=== PATIENT | female | born 1950 | race Caucasian/White ===

== ENCOUNTER 2017-01-21 08:30 | Inpatient (IN) | payer MEDICARE, OTHER ==
[~2017-01-21] VITALS: Ht 163.8 cm; Wt 88.1 kg
[2017-02-14] MEDS ORDERED: PLAV75TA29 PO (09:40)
[2017-02-14] MEDS ORDERED: ASPI325T PO (09:40)
[2017-02-14] MEDS ORDERED: AMLO2.5T PO (09:40)
[2017-02-14] MEDS ORDERED: LEXA10TA PO (09:40)
[2017-02-14] MEDS ORDERED: PRAV10TA PO (09:40)
[2017-02-27] MEDS ORDERED: VANCOMYCIN HCL 1000 MG VIAL ONE ×2 (05:46→06:15)
[2017-02-27] MEDS ORDERED: SODIUM CHLOR 0.9% 250 ML INJ 250 ML ONE (05:46)
[2017-02-27] MEDS ORDERED: LACTATED RINGER'S 1000 ML INJ 1,000 ML ONE (05:47)
[2017-02-27 05:54] VITALS: BP 148/78; PULSE 57; RESP 18; TEMP 97.7; O2SAT 96
[2017-02-27] MEDS ORDERED: GENTAMICIN SULFATE 80 MG/2 ML VIAL ONE (06:15)
[2017-02-27] MEDS ORDERED: ceFAZolin 2 GM PREMIX 50 ML ONE ×2 (06:15→06:34)
[2017-02-27] MEDS ORDERED: ACETAMINOPHEN 1000 MG/100 ML VIAL IV ONE (06:38)
[2017-02-27] MEDS ORDERED: MIDAZOLAM HCL 2 MG/2 ML VIAL ONE (06:39)
[2017-02-27] MEDS ORDERED: DEXAMETHASONE SOD PHOS 4 MG/ML VIAL ONE (06:39)
[2017-02-27] MEDS ORDERED: FAMOTIDINE 20 MG/2 ML VIAL ONE (06:39)
[2017-02-27] MEDS ORDERED: fentaNYL CITRATE 250 MCG/5 ML AMP ONE (06:49)
[2017-02-27] MEDS ORDERED: TRANEXAMIC ACID IV SCH (07:00)
[2017-02-27] MEDS ORDERED: SODIUM CHLORIDE 0.9% IV SCH (07:00)
[2017-02-27] MEDS ORDERED: CHLORHEXIDINE GLUCONATE 4% SOLN 120 ML BTL TOPICAL SCH (07:00)
[2017-02-27] MEDS ORDERED: ceFAZolin 2 GM PREMIX 50 ML IV SCH (07:00)
[2017-02-27] MEDS ORDERED: EXPAREL PERI-ARTICULAR INJECTION (TOTAL VOL. 60 ML) P-ARTICULR SCH ×2 (07:00)
[2017-02-27] MEDS ORDERED: VANCOMYCIN 1000 MG/NS 250 ML (for <70 kg) IV SCH ×2 (07:00)
[2017-02-27] MEDS ORDERED: Post-op Orders (for Pharmacy) MISC XX ONE (08:45)
[2017-02-27] MEDS ORDERED: NALOXONE HCL 0.4 MG/ML AMP IV PRN (08:45)
[2017-02-27] MEDS ORDERED: SODIUM CHLORIDE 0.9% FLUSH 5 ML FLUSH IVF PRN (08:45)
[2017-02-27] MEDS ORDERED: MORPHINE SULFATE 4 MG/ML INJ IV PUSH PRN (08:45)
[2017-02-27] MEDS ORDERED: ONDANSETRON HCL 4 MG/2 ML VIAL IVP PRN (08:45)
--- NOTE | 2017-02-27 08:49 | PD.OP ---
cc: Monico Bryant MD Operative Report Date of Surgery: Feb 27, 2017 Preoperative Diagnosis: Severe right hip osteoarthritis Postoperative Diagnosis: Procedure: Right total hip arthroplasty Anesthesia: Gen. Surgeon: Monico Bryant Entry Level Drafter(s): CARSON Radford PA-C The surgical procedure was assisted by my physician night assistant. My P.A. presence was necessary throughout this case for the manipulation and positioning of the surgical extremity. My P.A. was assisting me throughout the duration of this procedure. The skill set of a physician night assistant was medically necessary to complete this procedure. During the surgical case the instructor adjunct surgical technician was working at the back table and the physician night assistant was directly assisting me. Operation and Findings: PLAN OF ACTIVITY Weight bear as tolerated. DRAINS: 7-mm TONJA drain. IMPLANTS USED DePuy Corail size 10 standard collared stem with a size [50] Louviers Gription cup and a [32+1.5] ceramic Biolox ceramic head. DETAILS OF PROCEDURE: This patient has a long history of hip pain. Patient was found to have severe osteoarthritis. The patient had radiographic evidence of joint space narrowing with [id number] arthritis and osteophytes around the acetabulum as well as the femoral head. There was also some cystic changes. The patient failed conservative treatment with pain medications, anti-inflammatories, physical therapy, assistive devices including a cane, as well as therapeutic injection of the hip. Patient's hip arthritis was limiting his ability to ambulate and perform activities of daily living. The patient wished to proceed with surgery and informed consent was obtained. Operative site was marked. I discussed both posterior approach and anterior approach with the patient and decision was made for anterior approach. Patient was brought to OR and placed on OR table. IV sedation and general anesthesia was administered by anesthesiologist. Patient positioned on a Heather table and was given IV antibiotics. Time-out procedure was performed. The hip and thigh were prepped with alcohol followed by Hibiclens. The thigh was draped in the usual sterile fashion. Clean Air Suite was used for this procedure. The procedure began with a 5-inch incision over the anterolateral thigh. Subcutaneous tissue was dissected with Bovie. The fascia over the tensa fasciae latae was incised. Care was taken to avoid injury to the lateral femoral cutaneous nerve. The tensor muscle was retracted laterally. Sartorius was retracted medially. Retractors were now placed. The reflected head of the rectus is now elevated. A capsulotomy was performed over the anterior head capsule. Sutures were placed to help retract the capsule. At this point the femoral head and neck were identified. With soft tissue protected, oscillating saw was used to make a cut through the femoral neck, the femoral head was now removed. At this point attention was turned to preparation of the acetabulum. The labrum was excised. The acetabulum was sequentially reamed up to size [50]. A Louviers cup was now placed. Fluoroscopy was used to aid in identification of appropriate version. Cup was fully impacted and found to have excellent fit. Hole eliminator was now placed. The liner was now impacted into the cup. At this point the hip was externally rotated. A hook was placed around the proximal femur. The capsule was released off the lateral and medial femur. The hip was now extended and adducted. Retractors were placed around the proximal femur to allow for exposure. A box osteotome was used to remove the lateral cortex of the femoral neck. A broach was used to help lateralize the prosthesis. Canal finder was used to create a path down the canal. Next, the canal was sequentially broached up to size [10]. This was found to be an excellent fit. Calcar planer was placed. A standard head was placed, and the hip was reduced. The hip was found to have excellent stability with good range of motion. The leg lengths were measured under fluoroscopy and found to be equal compared to preoperatively. Trial broach was removed. The Corail stem was opened. Stem was fully impacted into the proximal femur in appropriate version. The femoral head was placed. The hip was again reduced. Fluoroscopy confirmed excellent alignment of prosthesis. The wound was thoroughly irrigated and capsule was closed with #1 Vicryl. The fascia over the tensor fasciae muscle was closed with #1 Vicryl, subcutaneous tissue was closed with 3-0 Vicryl and the skin was closed with birgit and Dermabond skin closure. The capsule layers were injected with a mixture of saline and bupivicaine. Dressings were applied. The patient was transferred to Recovery Room in stable condition. Monico Bryant MD Feb 27, 2017 08:49
[2017-02-27] MEDS: PRAVASTATIN SOD 10 MG TAB PO SCH (09:00)
[2017-02-27] MEDS: SODIUM CHLORIDE 0.9% FLUSH 5 ML FLUSH IVF SCH ×2 (09:00→20:47)
[2017-02-27] MEDS: ESCITALOPRAM OXALATE 10 MG TAB PO SCH (09:00)
[2017-02-27] MEDS: amLODIPine BESYLATE 5 MG TAB PO SCH (09:00)
[2017-02-27] MEDS ORDERED: *MEPERIDINE 25 MG INJ VIAL PERIprocedural Use ONLY ONE (09:25)
[2017-02-27] MEDS ORDERED: DO NOT ADM ANY ANTICOAGULANT DRUGS PRN (09:30)
[2017-02-27] MEDS ORDERED: PILL SPLITTER OTHER PRN (09:30)
[2017-02-27] MEDS ORDERED: *morphine SULFATE 8 MG/ML PERIprocedure ONLY ONE ×2 (09:35→09:47)
--- NOTE | 2017-02-27 09:56 | RADRPT ---
EXAM DATE/TIME: 02/27/2017 10:35 [facility] COMPARISON: No previous studies available for comparison. INDICATIONS : Post right hip arthroplasty MEDICAL HISTORY : None. SURGICAL HISTORY : None. ENCOUNTER: Initial ACUITY: 1 day PAIN SCORE: Non-responsive. LOCATION: Right Hip FINDINGS: Total hip arthroplasty is in place on the right. The femoral and acetabular components appear intact . There are no signs of loosening or fracture. CONCLUSION: Intact total hip prosthesis for technique. Wilner Deal MD on February 27, 2017 at 9:54 Board Certified Radiologist. This report was verified electronically.
[2017-02-27] MEDS ORDERED: TRANEXAMIC ACID INJ 1,000 MG in SODIUM CHLORIDE 0.9% INJ 100 ML IV ONE (10:00)
[2017-02-27] MEDS: LACTATED RINGER'S 1000 ML INJ 1,000 ML IV SCH (10:00)
[2017-02-27] MEDS: KETOROLAC TROMETHAMINE 30 MG/ML (IVP) VIAL IV PUSH SCH ×2 (10:03→22:24)
[2017-02-27] MEDS ORDERED: XARE10TA PO (11:08)
[2017-02-27] MEDS ORDERED: HYDR-3366 PO (11:08)
[2017-02-27] MEDS ORDERED: WALKER WHEELS/F1 MIS (11:08)
--- NOTE | 2017-02-27 11:10 | HHI.FF ---
Face to Face Verification Diagnosis: (1) Status post total replacement of right hip Physical Therapy Gait training Hip: Total hip, Protocol: Right, Progress to weight bearing Right LE Weight Bearing: WB as tolerated Left LE Weight Bearing: WB as tolerated Nursing Dressing Changes: Daily dressing change, Coverderm/Primapore (begin xeroform on POD 10) I have seen patient Cee Moreno on 02/27/17. My clinical findings support the need for the requested home health care services because: Ltd mobility - disease progression I certify that my clinical findings support that this patient is homebound because: Post-op weakness Navi Al Feb 27, 2017 11:10
[2017-02-27 11:40] VITALS: BP 146/70; PULSE 68; RESP 16; TEMP 95.3; O2SAT 98
[2017-02-27] MEDS ORDERED: LACTATED RINGER'S 1000 ML INJ 1,000 ML IV ONE (12:00)
[2017-02-27] MEDS ORDERED: ONDANSETRON HCL 4 MG/2 ML VIAL IV PUSH ONE (12:00)
[2017-02-27] MEDS ORDERED: PROPOFOL 200 MG/20 ML AMP IV ONE (12:00)
[2017-02-27] MEDS ORDERED: NEOSTIGMINE 3 MG/3 ML SYR IV ONE (12:00)
[2017-02-27] MEDS: ceFAZolin 2 GM PREMIX 50 ML IV SCH ×3 (12:10→23:31)
[2017-02-27] MEDS: ACETAMINOPHEN/HYDROcodone 325 MG/7.5 MG TAB PO PRN (12:10)
--- NOTE | 2017-02-27 12:59 | RADRPT ---
EXAM DATE/TIME: 02/27/2017 07:15 [facility] COMPARISON: No previous studies available for comparison. INDICATIONS : Total right hip replacement. MEDICAL HISTORY : None. SURGICAL HISTORY : None. ENCOUNTER: Initial ACUITY: 1 day PAIN SCORE: Non-responsive. LOCATION: Right hip. FINDINGS: Patient is status post placement of a right hip prosthesis. There is good position and alignment of t he prosthesis and bony structures. The bony structures are grossly intact. Postsurgical changes are p resent. CONCLUSION: Good position and alignment on this postoperative examination. Peter Colin MD on February 27, 2017 at 12:57 Board Certified Radiologist. This report was verified electronically.
[2017-02-27] MEDS: ACETAMINOPHEN/HYDROcodone 325 MG/10 MG TAB PO PRN ×3 (16:15→23:32)
[2017-02-27 17:00] VITALS: BP 119/80; PULSE 69; RESP 16; TEMP 95.2; O2SAT 97
[2017-02-27 20:00] VITALS: BP 141/73; PULSE 60; RESP 17; TEMP 96.8; O2SAT 96
[2017-02-27] MEDS: VANCOMYCIN INJ 1,000 MG in SODIUM CHLOR 0.9% 250 ML INJ 250 ML IV SCH (20:44)
[2017-02-28] VITALS: BP 130/63; PULSE 65; RESP 17; TEMP 97.9; O2SAT 95
[2017-02-28] MEDS: ACETAMINOPHEN/HYDROcodone 325 MG/10 MG TAB PO PRN ×2 (02:48→05:59)
[2017-02-28 04:00] VITALS: BP 146/74; PULSE 60; RESP 17; TEMP 97.3; O2SAT 95
[2017-02-28 04:52] LABS: HEMATOCRIT 30.4 % (35.0-46.0); REVIEW FLAG FINAL
[2017-02-28] MEDS: LACTATED RINGER'S 1000 ML INJ 1,000 ML IV SCH ×2 (05:59→09:11)
--- NOTE | 2017-02-28 06:56 | PD.ORT.PN ---
Subjective Subjective Remarks Resting comfortably. No new complaints Objective Vitals Vital Signs Date Time Temp Pulse Resp B/P Pulse Ox O2 Delivery O2 Flow Rate FiO2 02/28/17 04:00 97.3 60 17 146/74 95 02/28/17 00:00 97.9 65 17 130/63 95 02/27/17 23:20 16 02/27/17 21:35 16 02/27/17 20:00 96.8 60 17 141/73 96 02/27/17 17:39 Nasal Cannula 3.00 02/27/17 17:00 95.2 69 16 119/80 97 02/27/17 11:40 95.3 68 16 146/70 98 02/27/17 11:25 97.5 58 16 148/89 95 Room Air 02/27/17 11:00 57 16 147/83 94 Room Air 02/27/17 10:30 97.6 55 15 141/74 99 Nasal Cannula 3 02/27/17 10:25 15 02/27/17 10:15 56 15 149/69 98 Nasal Cannula 3 02/27/17 10:00 58 15 145/76 97 Nasal Cannula 3 02/27/17 09:52 15 02/27/17 09:45 60 15 146/78 97 Nasal Cannula 3 02/27/17 09:40 15 02/27/17 09:30 63 15 150/83 99 Nasal Cannula 4 02/27/17 09:15 97.5 60 16 131/96 98 Nasal Cannula 4 I/O 02/27/17 02/27/17 02/27/17 02/28/17 02/28/17 02/28/17 07:00 15:00 23:00 07:00 15:00 23:00 Intake Total 1790 ml 360 ml 240 ml Output Total 1470 ml 500 ml 1525 ml Balance 320 ml -140 ml -1285 ml Intake Oral 240 ml 360 ml 240 ml IV Total 150 ml Other 1400 ml Output Urine Total 1100 ml 350 ml 1525 ml Drainage Total 70 ml 150 ml Estimated Blood Loss 300 ml # Bowel Movements 0 0 0 Result Diagram: 02/28/17 0351 Imaging Last 24 hours Impressions Hip and Pelvis X-Ray 02/27/17 0845 Signed Impressions: Service Date/Time: February 10:35 - CONCLUSION: Intact total hip prosthesis for technique. K. Anthony Deal MD Objective Remarks Right lower extremity: Clean dry dressings intact. Minimal swelling. Drain removed. She has intact sensation distally with good capillary refills. She has strong dorsiflexion plantar flexion of foot. Assessment & Plan Assessment and Plan Right total hip arthroplasty anterior approach POD 1 Weightbearing as tolerated with physical therapy twice a day Daily dressing changes with Primapore over incision and Xeroform over drain site Incentive spirometry MEG hose and SCDs Lovenox with Xarelto after discharge Case management for home health care Plan for discharge on Friday morning after physical therapy Follow-up with Dr. Bryant or PA in 2 weeks Carlos Alberto Momin Jr. Feb 28, 2017 06:55
[2017-02-28 08:00] VITALS: BP 141/71; PULSE 56; RESP 16; TEMP 96.8; O2SAT 96
[2017-02-28] MEDS ORDERED: ENOXAPARIN SODIUM 40 MG/0.4 ML SYRINGE SQ SCH (08:11)
[2017-02-28] MEDS: VANCOMYCIN INJ 1,000 MG in SODIUM CHLOR 0.9% 250 ML INJ 250 ML IV SCH (09:08)
[2017-02-28] MEDS: ESCITALOPRAM OXALATE 10 MG TAB PO SCH (09:09)
[2017-02-28] MEDS: diphenhydrAMINE HCL 25 MG CAP PO PRN ×2 (09:09→13:30)
[2017-02-28] MEDS: PRAVASTATIN SOD 10 MG TAB PO SCH (09:09)
[2017-02-28] MEDS: amLODIPine BESYLATE 5 MG TAB PO SCH (09:10)
[2017-02-28] MEDS: SODIUM CHLORIDE 0.9% FLUSH 5 ML FLUSH IVF SCH (09:10)
[2017-02-28] MEDS: KETOROLAC TROMETHAMINE 30 MG/ML (IVP) VIAL IV PUSH SCH (09:12)
[2017-02-28 09:35] VITALS: O2SAT 94
[2017-02-28 12:00] VITALS: BP 163/73; PULSE 67; RESP 16; TEMP 97.5; O2SAT 96
[2017-02-28] MEDS: ACETAMINOPHEN/HYDROcodone 325 MG/7.5 MG TAB PO PRN (13:30)
[2017-02-28] MEDS ORDERED: DOCUSATE SODIUM 100 MG CAP PO SCH (21:00)
== END 2017-02-28 15:38 | disposition home health service (06) | DRG 470 ==
LOC: HSDI 02-27 05:25 → N06B 02-27 11:40
PROVIDERS: ADMIT Orthopaedic Surgery Orthopaedic Trauma; ATTEND Orthopaedic Surgery Orthopaedic Trauma
PROC: 0SR904A Replacement of Right Hip Joint with Ceramic on Polyethylene Synthetic Substitute, Uncemented, Open Approach (ICD-10-PCS; principal; 2017-02-27 06:44)
DX: M16.11 Unilateral primary osteoarthritis, right hip (principal); I10 Essential (primary) hypertension; E78.5 Hyperlipidemia, unspecified; J45.909 Unspecified asthma, uncomplicated
CPT/HCPCS: 73501; 73502; 76000; 85014; 85018; 86850; 86900; 86901; C1776; J0131; J0690; J1100; J1580; J1650; J1885; J2175; J2250; J2270; J2405; J2710; J3010; J3370; J7050; J7120

== ENCOUNTER → 2017-02-14 | Outpatient (CLI) | payer MEDICARE, OTHER ==
[~2017-02-14] MED LIST: AMLO2.5T PO; ASPI325T PO; HYDR-3366 PO; HYDR10SO PO; LEXA10TA PO; LISI-357 PO; PLAV75TA29 PO; PRAV10 PO; PRAV10TA PO; WALKER WHEELS/F1 MIS; XARE10TA PO
[2017-02-14 09:53] LABS: BASOPHIL # 0.1 TH/MM3 (0-0.2); BASOPHIL % 1.1 % (0.0-2.0); EOSINOPHIL # 0.2 TH/MM3 (0-0.4); EOSINOPHIL % 4.5 % (0.0-4.0); HEMATOCRIT 42.6 % (35.0-46.0); HEMO FLAGS DIFF FINAL; LYMPH % 24.6 % (9.0-44.0); LYMPHOCYTE # 1.2 TH/MM3 (1.0-4.8); MEAN CELL VOLUME 80.2 FL (80.0-100.0); MEAN CORPUSCULAR HGB CONC 33.7 % (32.0-36.0); MONO % 9.8 % (0.0-8.0); PLATELET COUNT 168 TH/MM3 (150-450); RED BLOOD COUNT 5.32 MIL/MM3 (4.00-5.30); RED CELL DISTRIBUTION WIDTH 14.3 % (11.6-17.2)
[2017-02-14 10:00] LABS: APTT (PATIENT) 26.4 SEC (24.3-30.1); PROTHROMBIN TIME - PATIENT 11.4 SEC (9.8-11.6)
[2017-02-14 10:14] LABS: BICARBONATE 32.5 MEQ/L (21.0-32.0); POTASSIUM 3.4 MEQ/L (3.5-5.1)
[2017-02-14 10:18] LABS: BLOOD, URINE TRACE (NEG); COMMENT (UR) CULT NOT INDICATED; CULTURE IF INDICATED CULT NOT INDICATED; GLUCOSE,URINE NEG (NEG); KETONE, URINE NEG (NEG); MUCUS URINE FEW /lpf (OCC); NITRITE,URINE NEG (NEG); SQUAMOUS EPITHELIAL CELL URINE 1 /hpf (0-5); URINE COLOR LIGHT-YELLOW (YELLW/STRAW)
--- NOTE | 2017-02-15 14:44 | EKG ---
Date Performed: 02/14/2017 Time Performed: 09:58:35 PTAGE: 66 years EKG: SINUS BRADYCARDIA POSSIBLE ANTERIOR MYOCARDIAL INFARCTION, OF INDETERMINATE AGE PROBABLE IN FERIOR MYOCARDIAL INFARCTION, PROBABLY OLD MODERATE T-WAVE ABNORMALITY, CONSIDER LATERAL ISCHEMIA Com pared to prior tracing no significant change ABNORMAL ECG NO PREVIOUS TRACING DOCTOR: Gasper Wyman Interpretating Date/Time 02/15/2017 14:40:10
== END ==
LOC: CPRE 09:09
PROVIDERS: ATTEND Orthopaedic Surgery Orthopaedic Trauma
DX: Z01.810 Encounter for preprocedural cardiovascular examination (principal); Z01.812 Encounter for preprocedural laboratory examination; Z01.811 Encounter for preprocedural respiratory examination; Z01.818 Encounter for other preprocedural examination; Z96.60 Presence of unspecified orthopedic joint implant; Z79.01 Long term (current) use of anticoagulants; Z13.9 Encounter for screening, unspecified; M79.609 Pain in unspecified limb; R94.31 Abnormal electrocardiogram [ECG] [EKG]
CPT/HCPCS: 36415; 80048; 81001; 85025; 85610; 85730; 93005

== ENCOUNTER 2018-07-22 15:28 | Inpatient (IN) ==
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
[2018-07-22] MEDS ORDERED: Sod Chloride 0.9% Inj 1,000 ML IV.CONT SCH (16:15)
[2018-07-22 16:23] LABS: Baso # (Auto) 0.1 th/mm3 (0.0-0.2); Baso % (Auto) 1.2 % (0.0-2.0); Eos # (Auto) 0.1 th/mm3 (0.0-0.4); Eos % (Auto) 2.4 % (0.0-4.0); Hemoglobin 13.9 gm/dL (11.6-15.3); Lymph # (Auto) 1.1 th/mm3 (1.0-4.8); Lymph % (Auto) 18.3 % (9.0-44.0); Mean Corpuscular HGB Conc 33.8 % (32.0-36.0); Mean Corpuscular Hemoglobin 28.1 pg (27.0-34.0); Mean Platelet Volume 9.8 fL (7.0-11.0); Mono # (Auto) 0.6 th/mm3 (0.0-0.9); Mono % (Auto) 9.7 % (0.0-8.0); Neut # (Auto) 4.1 th/mm3 (1.8-7.7); Neut % (Auto) 68.4 % (16.0-70.0); Platelet Count 186 th/mm3 (150-450); Red Blood Count 4.95 mil/mm3 (4.00-5.30); Red Cell Distribution Width 14.2 % (11.6-17.2)
[2018-07-22 16:37] LABS: Activated Partial Thrombo Time 25.2 sec (24.3-30.1); INR 1.1 Ratio; Prothrombin Time 11.3 sec (9.8-11.6)
[2018-07-22 16:46] LABS: Albumin 3.8 g/dL (3.4-5.0); Anion Gap 8 meq/L (5-15); Aspartate Aminotransferase 13 U/L (15-37); Blood Urea Nitrogen 30 mg/dL (7-18); Calcium 9.3 mg/dL (8.5-10.1); Carbon Dioxide 32.7 meq/L (21.0-32.0); Chloride 104 meq/L (98-107); Glomerular Filtration Rate 52 mL/min (>89); Glucose,Random 130 mg/dL (74-106); Magnesium 2.1 mg/dL (1.5-2.5); Potassium 3.1 meq/L (3.5-5.1); Sodium 145 meq/L (136-145)
[2018-07-22 16:47] LABS: Alanine Aminotransferase 17 U/L (10-53)
[2018-07-22 16:51] LABS: Alkaline Phosphatase 64 U/L (45-117); Total Protein 6.8 g/dL (6.4-8.2)
[2018-07-22] MEDS ORDERED: Sod Chloride 0.9% Inj 1,000 ML IV.SIG ONE (16:58)
[2018-07-22 17:06] LABS: Creatine Kinase 44 U/L (26-192)
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
[2018-07-22] MEDS ORDERED: Aspirin 325 MG Tablet PO ONE (18:09)
[2018-07-22] MEDS ORDERED: Acetaminophen 325 MG Tablet PO PRN (19:34)
[2018-07-22 19:50] LABS: Bilirubin,Urine Negative (Negative); Clarity,Urine Clear (Clear); Color,Urine Yellow (Yellw/Straw); Glucose,Urine (UA) Negative (Negative); Hyaline Casts,Urine 3 /lpf (0-3); Leukocyte Esterase,Urine Negative (Negative); Mucus,Urine Few /lpf (Occasional); Nitrite,Urine Negative (Negative); Specific Gravity,Urine 1.018 (1.002-1.035)
--- NOTE | 2018-07-22 21:10 | P.HP ---
History of Present Illness Service: [facility] Primary Care Physician: Ric Mckeon MD History of Present Illness: 67-year-old female with a past medical history of previous CVA, hypertension and hyperlipidemia presents the emergency department for evaluation of 3 days of right-sided weakness and difficulty identifying objects. The patient reports that her phone looks like a foreign object to her and she is unable to work it. She also reports having had right-handed weakness and driving difficulties when she drove to the pet store earlier today. She reports that she was unable to keep from swerving repeatedly while driving. She also endorses of right lower extremity weakness. Her daughter reports her speech is markedly slowed. CT of the head concerning for evolving infarct. She denies chest pain or shortness of breath. No abdominal pain. No nausea/vomiting/ diarrhea. Inpatient Certification: I certify that the inpatient services were ordered in accordance with Medicare regulations governing the order. This includes certification that hospital inpatient services are reasonable and necessary and in the case of services not specified as inpatient-only under 42 CFR 419.22(n), that they are appropriately provided as inpatient services in accordance to with the 2-midnight benchmark under 43 CFR 412.3(e) Estimated Total Length of Stay (Days): 3 Plans for Post Hospital Care: Home Review of Systems All other systems reviewed negative except as stated in HPI [facility] - History History Provided By: Patient, Family Member - Medical History Medical History: Medical History (Last Updated 07/22/18 @ 15:47 by JuanaWashio) CVA (cerebral vascular accident) HTN (hypertension) - Surgical History Surgical History: Surgical History (Last Updated 07/22/18 @ 15:47 by [employer]) Gastric bypass status for obesity H/O shoulder surgery History of hip replacement - Family History Family History: Family History (Last Updated 07/22/18 @ 21:02 by Angela Glover MD) Other Family history normal - Tobacco History Second Hand Smoke Exposure: No Tobacco Use In Past 30 Days: No Smoking Status: Former smoker - Alcohol History How Often Do You Have a Drink Containing Alcohol: 2 to 4 times a month - Substance Use History Substance History: No History of Abuse - Travel History Recent Travel in the [place] Within the Last 8 Weeks: No Recent Travel Out of the Country Within the Last 8 Weeks: No - Immunization History Tetanus Immunization: Unsure Hx Influenza Vaccine This Season: No Medications and Allergies Active Medications: Active Medications Acetaminophen (Tylenol) 650 mg PO Q4H PRN PRN Reason: Temp > 100.4 Aspirin (Aspirin) 325 mg PO DAILY DAMASO Clopidogrel Bisulfate (Plavix) 75 mg PO DAILY DAMASO Sodium Chloride (Ns Inj) 1,000 mls @ 100 mls/hr IV.CONT .Q10H DAMASO Ondansetron HCl (Zofran Inj) 4 mg IV.PUSH Q6H PRN PRN Reason: NAUSEA OR VOMITING Pravastatin Sodium (Pravachol) 40 mg PO HS DAMASO Sodium Chloride (Ns Flush) 2 ml IV.FLUSH PRN PRN PRN Reason: FLUSH AFTER USING IV ACCESS Last Admin: 07/22/18 17:42 Dose: 2 ml Allergies Allergy/AdvReac Type Severity Reaction Status Date / Time codeine Allergy Severe Arrhythmias Verified 07/22/18 18:46 Home Medications Medication Instructions Recorded Confirmed Type clopidogrel [Plavix] 75 mg PO DAILY 07/22/18 07/22/18 History Exam Vital signs: Vital Signs 07/22/18 15:31 07/22/18 15:35 07/22/18 16:15 Temperature 98.4 F Pulse Rate 64 66 Respiratory Rate 19 15 Blood Pressure 181/82 H 160/71 H Pulse Oximetry 96 99 99 07/22/18 17:15 07/22/18 19:16 07/22/18 19:30 Temperature Pulse Rate 60 60 Respiratory Rate 24 22 Blood Pressure 174/74 H 183/79 H Pulse Oximetry 99 100 100 Intake & Output 07/22/18 07/22/18 07/23/18 06:59 18:59 06:59 Intake Total 1000 / 1000 Balance 1000 / 1000 Weight 81.193 kg Intake: IV 1000 / 1000 NS Inj 1,000 ML @ Wide Open IV. 1000 / 1000 SIG BOLUS ONE Rx#:[id number] Narrative: Gen.: No acute distress Head: Normocephalic. Atraumatic. EENT: Pupils equal round and reactive to light. Nose without drainage. Airway intact. Throat without injection. Cardiovascular: Regular rate and rhythm. No murmurs, rubs or gallops. Respiratory: Lungs clear to auscultation bilaterally. No wheezes or rhonchi. Abdomen: Soft, nontender, nondistended. No peritoneal signs. Musculoskeletal: No gross deformities. No edema. Skin: No obvious rashes or erythema. Neuro: Cranial nerves II through XII grossly intact. Right hand table games dealer strength 2 /5. Right lower extremity strength and dorsi/plantar flexion strength 2/5. Slow speech. No word finding difficulties or slurring. Results - Labs CBC & Chem 7: 07/22/18 16:10 07/22/18 16:10 Labs: Laboratory Results - last 24 hr 07/22/18 07/22/18 07/22/18 16:10 16:10 16:10 WBC 6.0 RBC 4.95 Hgb 13.9 Hct 41.0 MCV 83.0 MCH 28.1 MCHC 33.8 RDW 14.2 Plt Count 186 MPV 9.8 Neut % (Auto) 68.4 Lymph % (Auto) 18.3 [place] % (Auto) 9.7 H Eos % (Auto) 2.4 Baso % (Auto) 1.2 Neut # (Auto) 4.1 Lymph # (Auto) 1.1 [place] # (Auto) 0.6 Eos # (Auto) 0.1 Baso # (Auto) 0.1 WBC Differential . Differential Comment Auto diff final PT 11.3 INR 1.1 APTT 25.2 Sodium 145 Potassium 3.1 L Chloride 104 Carbon Dioxide 32.7 H Anion Gap 8 BUN 30 H Creatinine 1.06 H Estimated GFR 52 L Random Glucose 130 H Calcium 9.3 Magnesium 2.1 Total Bilirubin 0.5 AST 13 L ALT 17 Alkaline Phosphatase 64 Total Creatine Kinase 44 Troponin I Less than 0.02 L Total Protein 6.8 Albumin 3.8 Urine Color Urine Clarity Urine pH Ur Specific [place] Urine Protein Urine Glucose (UA) Urine Ketones Urine Occult Blood Urine Nitrate Urine Bilirubin Urine Urobilinogen Ur Leukocyte Esterase Urine RBC Urine WBC Hyaline Casts Urine Mucus Micro UA Comment Ur Microscopic Review Urine Culture Comments 07/22/18 19:26 WBC RBC Hgb Hct MCV MCH MCHC RDW Plt Count MPV Neut % (Auto) Lymph % (Auto) [place] % (Auto) Eos % (Auto) Baso % (Auto) Neut # (Auto) Lymph # (Auto) [place] # (Auto) Eos # (Auto) Baso # (Auto) WBC Differential Differential Comment PT INR APTT Sodium Potassium Chloride Carbon Dioxide Anion Gap BUN Creatinine Estimated GFR Random Glucose Calcium Magnesium Total Bilirubin AST ALT Alkaline Phosphatase Total Creatine Kinase Troponin I Total Protein Albumin Urine Color Yellow Urine Clarity Clear Urine pH 5.0 Ur Specific [place] 1.018 Urine Protein Negative Urine Glucose (UA) Negative Urine Ketones Trace H Urine Occult Blood Small H Urine Nitrate Negative Urine Bilirubin Negative Urine Urobilinogen 2.0 H Ur Leukocyte Esterase Negative Urine RBC 2 Urine WBC 1 Hyaline Casts 3 Urine Mucus Few H Micro UA Comment Culture not ind Ur Microscopic Review Not Reportable Urine Culture Comments Culture not ind - Imaging Impressions Head CT 07/22/18 16:02 CONCLUSION: 1. Atrophy and white matter disease with a hypodense left basal ganglia lesion possibly an evolving infarct. MRI of the brain would be helpful for further evaluation. 2. No evidence of intracranial hemorrhage. . Caprini VTE Risk Assessment Caprini VTE Risk Assessment: Moderate/High Risk (score >= 2) Caprini Risk Assessment Model: Point Value = 1 Point Value = 2 Point Value = 3 Point Value = 5 Age 41-60 Minor surgery BMI > 25 kg/m2 Swollen legs Varicose veins or History of unexplained or recurrent spontaneous Oral contraceptives or hormone replacement Sepsis (< 1 month) Serious lung disease, including pneumonia (< 1 month) Abnormal pulmonary function Acute myocardial infarction Congestive heart failure (< 1 month) History of inflammatory bowel disease Medical patient at bed rest Age 61-74 Arthroscopic surgery Major open surgery (> 45 min) Laparoscopic surgery (> 45 min) Malignancy Confined to bed (> 72 hours) Immobilizing plaster cast Central venous access Age >= 75 History of VTE Family history of VTE Factor V Leiden Prothrombin [id number] Lupus anticoagulant Anticardiolipin antibodies Elevated serum homocysteine Heparin-induced thrombocytopenia Other congenital or acquired thrombophilia Stroke (< 1 month) Elective arthroplasty Hip, pelvis, or leg fracture Acute spinal cord injury (< 1 month) Prophylaxis Regimen: Total Risk Factor Score Risk Level Prophylaxis Regimen 0-1 Low Early ambulation 2 Moderate Order ONE of the following: *Sequential Compression Device (SCD) *Heparin 5000 units SQ BID 3-4 Higher Order ONE of the following medications: *Heparin 5000 units SQ TID *Enoxaparin/Lovenox 40 mg SQ daily (WT < 150 kg, CrCl > 30 mL/min) *Enoxaparin/Lovenox 30 mg SQ daily (WT < 150 kg, CrCl > 10-29 mL/min) *Enoxaparin/Lovenox 30 mg SQ BID (WT < 150 kg, CrCl > 30 mL/min) AND/OR *Sequential Compression Device (SCD) 5 or more Highest Order ONE of the following medications: *Heparin 5000 units SQ TID (Preferred with Epidurals) *Enoxaparin/Lovenox 40 mg SQ daily (WT < 150 kg, CrCl > 30 mL/min) *Enoxaparin/Lovenox 30 mg SQ daily (WT < 150 kg, CrCl > 10-29 mL/min) *Enoxaparin/Lovenox 30 mg SQ BID (WT < 150 kg, CrCl > 30 mL/min) AND *Sequential Compression Device (SCD) Assessment and Plan - Plan Assessment/plan: 1. CVA Head CT significant for a hypodense left basal ganglia lesion that is possibly an involving infarct MRI/MRA, carotid ultrasound pending Neurology consulted, appreciate recommendations Aspirin/Plavix 2. Hypertension Permissive HTN 3. Hypokalemia Potassium 3.1 Replete with IV potassium Monitor BMP FEN NPO NS at 70 cc/hr Electrolytes: As above
[2018-07-22] MEDS: Sod Chloride 0.9% Inj 1,000 ML IV.CONT SCH (22:43)
--- NOTE | 2018-07-22 23:28 | MR ---
EXAM DATE: 07/22/2018 11:15 PM EDT AGE/SEX: 67 years / Female INDICATIONS: CVA. Confusion CLINICAL DATA: This is the patient's initial encounter. Patient reports that signs and symptoms have been present for 1 day and indicates a pain score of 0/10. MEDICAL/SURGICAL HISTORY: Hypertension. . Gastric Sleeve, Hip, Shoulder COMPARISON: No prior exams available for comparison. TECHNIQUE: Multiplanar, multisequence examination of the brain was performed without contrast. FINDINGS: There is a 2.3 cm subacute infarct centered in the left basal ganglia extending into the left periven tricular white matter. Mild to moderate chronic white matter ischemic changes are present in the marylin ventricular region. There is no significant mass effect or midline shift. No hydrocephalus. No abnormal extra-axial fluid collections are present. No sellar mass. CONCLUSION: 1. 2.3 cm subacute infarct in the left basal ganglia. Mild to moderate chronic white matter ischemic changes. Electronically signed by: Andreas Esteban MD 07/22/2018 11:27 PM EDT
--- NOTE | 2018-07-22 23:30 | MR ---
EXAM DATE: 07/22/2018 11:14 PM EDT AGE/SEX: 67 years / Female INDICATIONS: CVA. Confusion CLINICAL DATA: This is the patient's initial encounter. Patient reports that signs and symptoms have been present for 1 day and indicates a pain score of 0/10. MEDICAL/SURGICAL HISTORY: Hypertension. . Gastric Sleeve, Hip, Shoulder COMPARISON: No prior exams available for comparison. TECHNIQUE: 3D taph-ca-guvonk MRA was performed. Source images, multiplanar STS MIP, and 3D volum e MIP reconstructions were reviewed. FINDINGS: The distal internal carotid arteries and basilar artery are patent. Anterior, middle and posterior ce rebral arteries are patent. There is origin of left posterior cerebral artery. CONCLUSION: 1. No hemodynamically significant stenosis. No evidence for aneurysm. Electronically signed by: Andreas Esteban MD 07/22/2018 11:29 PM EDT
--- NOTE | 2018-07-23 00:18 | US ---
EXAM DATE: 07/22/2018 11:59 PM EDT AGE/SEX: 67 years / Female INDICATIONS: Altered mental status, difficulty speaking, and weakness. CLINICAL DATA: This is the patient's initial encounter. Patient reports that signs and symptoms have been present for 2 days and indicates a pain score of 0/10. MEDICAL/SURGICAL HISTORY: Hypertension. Stroke. Gastric bypass. COMPARISON: [facility] [place] ARTER[place], 02/25/2015. . VELOCITY PARAMETERS: ICA/CCA Ratio: Right 2.04 , Left 1.65 ICA: Right 136 cm/sec, Left 103 cm/sec CCA: Right 67 cm/sec, Left 62 cm/sec ECA: Right 264 cm/sec, Left 124 cm/sec Vertebral: Right 33 cm/sec antegrade, Left 44 cm/sec antegrade FINDINGS: Right Carotid: Mild arteriosclerotic plaque is visualized.The waveforms are within normal limits. Left Carotid: Mild arteriosclerotic plaque is visualized. The waveforms are within normal limits. Other: None. CONCLUSION: 1. Right Internal Carotid Artery: Mild plaque formation predominantly around the right carotid bifur cation with a mild carotid stenosis. 2. Left Internal Carotid Artery: Mild plaque formation without hemodynamically significant stenosis. Electronically signed by: Andreas Esteban MD 07/23/2018 12:17 AM EDT
[2018-07-23] MEDS: Potassium Chlor 20 mEq Premix 20 MEQ/100 ML PIGGYBACK IV.SIG SCH ×2 (01:26→04:18)
[2018-07-23 06:37] LABS: Baso # (Auto) 0.1 th/mm3 (0.0-0.2); Baso % (Auto) 1.1 % (0.0-2.0); Eos # (Auto) 0.2 th/mm3 (0.0-0.4); Eos % (Auto) 3.1 % (0.0-4.0); Hematocrit 39.6 % (35.0-46.0); Hemoglobin 13.4 gm/dL (11.6-15.3); Lymph # (Auto) 1.1 th/mm3 (1.0-4.8); Lymph % (Auto) 21.5 % (9.0-44.0); Mean Corpuscular HGB Conc 33.8 % (32.0-36.0); Mean Corpuscular Hemoglobin 27.8 pg (27.0-34.0); Mean Corpuscular Volume 82.4 fL (80.0-100.0); Mean Platelet Volume 10.2 fL (7.0-11.0); Mono # (Auto) 0.5 th/mm3 (0.0-0.9); Mono % (Auto) 10.5 % (0.0-8.0); Neut # (Auto) 3.2 th/mm3 (1.8-7.7); Neut % (Auto) 63.8 % (16.0-70.0); Platelet Count 166 th/mm3 (150-450); Red Blood Count 4.81 mil/mm3 (4.00-5.30); Red Cell Distribution Width 14.6 % (11.6-17.2); White Blood Count 5.1 th/mm3 (4.0-11.0)
[2018-07-23] MEDS: Sod Chloride 0.9% Inj 1,000 ML IV.CONT SCH ×2 (06:51→19:05)
[2018-07-23 07:19] LABS: Anion Gap 9 meq/L (5-15); Blood Urea Nitrogen 20 mg/dL (7-18); Calcium 8.3 mg/dL (8.5-10.1); Carbon Dioxide 29.9 meq/L (21.0-32.0); Chloride 107 meq/L (98-107); Cholesterol 162 mg/dL (120-200); Glomerular Filtration Rate Greater Than 89 mL/min (>89); Glucose,Random 79 mg/dL (74-106); HDL Cholesterol 64.6 mg/dL (40.0-60.0); LDL Cholesterol,Calculated 85 mg/dL (0-99); Potassium 3.2 meq/L (3.5-5.1); Sodium 146 meq/L (136-145); Triglycerides 60 mg/dL (42-150)
[2018-07-23] MEDS ORDERED: Aspirin 325 MG Tablet PO SCH (09:00)
--- NOTE | 2018-07-23 10:14 | P.CONNEU ---
History of Present Illness Service: Neurology Consult date: 07/23/18 Requesting Physician: Angela Glover Reason for Consult: Stroke Primary Care Provider: Ric Mckeon MD Family Provider: Ric Mckeon MD Chief Complaint: Right side weakness History of Present Illness: 67 y/o female with hx of stroke, presented to the ER after 2-3 days of right sided weakness and increased confusion. Pt noted that she had difficulty figuring out how to use her cell phone. She also was swerving when driving. Her daughter states that the pt [place] her [place] to the [place] and got lost on the way there and home. She also sent them an odd text which caused her daughter to go check up on her and bring her to the hospital. Pt had been on a liquid diet also for weight loss for about a week. She continues to note weakness in the right leg more than the right arm. She had been on plavix and asa 325mg at home. She denies missing doses prior to this event. After the event she has not been taking her medications regularly. She sees Dr. Mayer outpatient for stroke. She states she last saw him about a week ago. She also is having some slow speech. No hx of seizure. She has hx of TIA, stroke. No hx of a-fib and does not note palpitations Review of Systems All other systems reviewed negative except as stated in HPI Constitutional: Reports weakness, Denies headache(s) Cardiovascular: Denies chest pain Neurologic: Reports lack of coordination, Reports localized weakness, Reports unsteadiness PMFSH - History History Provided By: Patient, Medical Record - Medical History Medical History: Medical History (Last Reviewed 07/23/18 @ 09:41 by Love Duggan) CVA (cerebral vascular accident) HTN (hypertension) - Surgical History Surgical History: Surgical History (Last Reviewed 07/23/18 @ 09:41 by Love Duggan) Gastric bypass status for obesity H/O shoulder surgery History of hip replacement - Family History Family History: Family History (Last Reviewed 07/23/18 @ 09:41 by Love Duggan) Other Family history normal - Tobacco History Second Hand Smoke Exposure: No Tobacco Use In Past 30 Days: No Smoking Status: Former smoker - Alcohol History How Often Do You Have a Drink Containing Alcohol: 2 to 4 times a month - Substance Use History Substance History: No History of Abuse - Travel History Recent Travel in the [place] Within the Last 8 Weeks: No Recent Travel Out of the Country Within the Last 8 Weeks: No - Immunization History Tetanus Immunization: Unsure Hx Influenza Vaccine This Season: No Medications and Allergies Allergies Allergy/AdvReac Type Severity Reaction Status Date / Time codeine Allergy Severe Arrhythmias Verified 07/22/18 18:46 Home Medications Medication Instructions Recorded Confirmed Type clopidogrel [Plavix] 75 mg PO DAILY 07/22/18 07/22/18 History Active Medications: Active Medications Acetaminophen (Tylenol) 650 mg PO Q4H PRN PRN Reason: Temp > 100.4 Dipyridamole/Aspirin (Aggrenox) 1 cap PO Q12HR DAMASO Sodium Chloride (Ns Inj) 1,000 mls @ 100 mls/hr IV.CONT .Q10H [facility] Last Infusion: 07/23/18 09:55 Dose: Infused Ondansetron HCl (Zofran Inj) 4 mg IV.PUSH Q6H PRN PRN Reason: NAUSEA OR VOMITING Pravastatin Sodium (Pravachol) 40 mg PO HS DAMASO Last Admin: 07/22/18 22:42 Dose: Not Given Sodium Chloride (Ns Flush) 2 ml IV.FLUSH PRN PRN PRN Reason: FLUSH AFTER USING IV ACCESS Last Admin: 07/22/18 17:42 Dose: 2 ml Exam Vital signs: Vital Signs 07/22/18 15:31 07/22/18 15:35 07/22/18 16:15 Temperature 98.4 F Pulse Rate 64 66 Respiratory Rate 19 15 Blood Pressure 181/82 H 160/71 H Pulse Oximetry 96 99 99 07/22/18 17:15 07/22/18 19:16 07/22/18 19:30 Temperature Pulse Rate 60 60 Respiratory Rate 24 22 Blood Pressure 174/74 H 183/79 H Pulse Oximetry 99 100 100 07/23/18 00:00 07/23/18 04:15 07/23/18 07:50 Temperature 98.0 F 98.3 F Pulse Rate 56 L 58 L Respiratory Rate 20 16 Blood Pressure 228/95 H 165/74 H Pulse Oximetry 96 99 98 07/23/18 08:00 Temperature 98.4 F Pulse Rate 56 L Respiratory Rate 16 Blood Pressure 128/68 Pulse Oximetry 94 L Intake & Output 07/22/18 07/23/18 07/23/18 18:59 06:59 18:59 Intake Total 1100 / 1100 1000 / 1000 Balance 1100 / 1100 1000 / 1000 Weight 81.193 kg 81.18 kg Intake: IV 1100 / 1100 1000 / 1000 NS Inj 1,000 ML @ 100 mls/hr IV 1000 / 1000 .CONT .Q10H DAMASO Rx#:[id number] KCl 20 mEq Premix Inj 20 meq In 100 / 100 100 ml @ 50 mls/hr IV.SIG Q2H DAMASO Rx#:[id number] NS Inj 1,000 ML @ Wide Open IV. 1000 / 1000 SIG BOLUS ONE Rx#:[id number] Other: # Voids 1 Date of Last Bowel Movement 07/22/18 07/22/18 Weight On Admission 81 kg - Constitutional no acute distress - Routine Respiratory Exam Present: CTA bilaterally - Routine Cardiovascular Exam Present: RRR - Routine Neurological Exam Present: alert alert and orient to self, she has difficulty giving history, speech is slow mild expressive aphasia CN II-XII intact, eomi, PERRL, no facial asymmetry RUE 3/5 weakness, RLE 2/5 weakness, normal on the left tone is normal f-n-f intact no tremor sensation is intact 1+ reflex delmi toes downgoing gait withheld Results - Labs CBC & Chem 7: 07/23/18 05:42 07/23/18 05:42 Labs: Laboratory Results - last 24 hr 07/22/18 07/22/18 07/22/18 16:10 16:10 16:10 WBC 6.0 RBC 4.95 Hgb 13.9 Hct 41.0 MCV 83.0 MCH 28.1 MCHC 33.8 RDW 14.2 Plt Count 186 MPV 9.8 Neut % (Auto) 68.4 Lymph % (Auto) 18.3 [place] % (Auto) 9.7 H Eos % (Auto) 2.4 Baso % (Auto) 1.2 Neut # (Auto) 4.1 Lymph # (Auto) 1.1 [place] # (Auto) 0.6 Eos # (Auto) 0.1 Baso # (Auto) 0.1 WBC Differential . Differential Comment Auto diff final PT 11.3 INR 1.1 APTT 25.2 Sodium 145 Potassium 3.1 L Chloride 104 Carbon Dioxide 32.7 H Anion Gap 8 BUN 30 H Creatinine 1.06 H Estimated GFR 52 L POC Glucose Random Glucose 130 H Calcium 9.3 Magnesium 2.1 Total Bilirubin 0.5 AST 13 L ALT 17 Alkaline Phosphatase 64 Total Creatine Kinase 44 Troponin I Less than 0.02 L Total Protein 6.8 Albumin 3.8 Triglycerides Cholesterol LDL Cholesterol, Calc HDL Cholesterol Cholesterol/HDL Ratio Urine Color Urine Clarity Urine pH Ur Specific [place] Urine Protein Urine Glucose (UA) Urine Ketones Urine Occult Blood Urine Nitrate Urine Bilirubin Urine Urobilinogen Ur Leukocyte Esterase Urine RBC Urine WBC Hyaline Casts Urine Mucus Micro UA Comment Ur Microscopic Review Urine Culture Comments 07/22/18 07/23/18 07/23/18 19:26 01:33 05:42 WBC 5.1 RBC 4.81 Hgb 13.4 Hct 39.6 MCV 82.4 MCH 27.8 MCHC 33.8 RDW 14.6 Plt Count 166 MPV 10.2 Neut % (Auto) 63.8 Lymph % (Auto) 21.5 [place] % (Auto) 10.5 H Eos % (Auto) 3.1 Baso % (Auto) 1.1 Neut # (Auto) 3.2 Lymph # (Auto) 1.1 [place] # (Auto) 0.5 Eos # (Auto) 0.2 Baso # (Auto) 0.1 WBC Differential . Differential Comment Auto diff final PT INR APTT Sodium Potassium Chloride Carbon Dioxide Anion Gap BUN Creatinine Estimated GFR POC Glucose 94 Random Glucose Calcium Magnesium Total Bilirubin AST ALT Alkaline Phosphatase Total Creatine Kinase Troponin I Total Protein Albumin Triglycerides Cholesterol LDL Cholesterol, Calc HDL Cholesterol Cholesterol/HDL Ratio Urine Color Yellow Urine Clarity Clear Urine pH 5.0 Ur Specific [place] 1.018 Urine Protein Negative Urine Glucose (UA) Negative Urine Ketones Trace H Urine Occult Blood Small H Urine Nitrate Negative Urine Bilirubin Negative Urine Urobilinogen 2.0 H Ur Leukocyte Esterase Negative Urine RBC 2 Urine WBC 1 Hyaline Casts 3 Urine Mucus Few H Micro UA Comment Culture not ind Ur Microscopic Review Not Reportable Urine Culture Comments Culture not ind 07/23/18 07/23/18 05:42 06:58 WBC RBC Hgb Hct MCV MCH MCHC RDW Plt Count MPV Neut % (Auto) Lymph % (Auto) [place] % (Auto) Eos % (Auto) Baso % (Auto) Neut # (Auto) Lymph # (Auto) [place] # (Auto) Eos # (Auto) Baso # (Auto) WBC Differential Differential Comment PT INR APTT Sodium 146 H Potassium 3.2 L Chloride 107 Carbon Dioxide 29.9 Anion Gap 9 BUN 20 H Creatinine 0.58 Estimated GFR Greater than 89 POC Glucose 82 Random Glucose 79 Calcium 8.3 L D Magnesium Total Bilirubin AST ALT Alkaline Phosphatase Total Creatine Kinase Troponin I Total Protein Albumin Triglycerides 60 Cholesterol 162 LDL Cholesterol, Calc 85 HDL Cholesterol 64.6 H Cholesterol/HDL Ratio 2.50 Urine Color Urine Clarity Urine pH Ur Specific [place] Urine Protein Urine Glucose (UA) Urine Ketones Urine Occult Blood Urine Nitrate Urine Bilirubin Urine Urobilinogen Ur Leukocyte Esterase Urine RBC Urine WBC Hyaline Casts Urine Mucus Micro UA Comment Ur Microscopic Review Urine Culture Comments - Imaging Impressions Carotid Doppler Study 07/22/18 00:00 CONCLUSION: 1. Right Internal Carotid Artery: Mild plaque formation predominantly around the right carotid bifurcation with a mild carotid stenosis. 2. Left Internal Carotid Artery: Mild plaque formation without hemodynamically significant stenosis. Head CT 07/22/18 16:02 CONCLUSION: 1. Atrophy and white matter disease with a hypodense left basal ganglia lesion possibly an evolving infarct. MRI of the brain would be helpful for further evaluation. 2. No evidence of intracranial hemorrhage. . Head MRI 07/22/18 19:38 CONCLUSION: 1. 2.3 cm subacute infarct in the left basal ganglia. Mild to moderate chronic white matter ischemic changes. Head MRA 07/22/18 19:38 CONCLUSION: 1. No hemodynamically significant stenosis. No evidence for aneurysm. Review/Management - Diagnosis (1) CVA (cerebral vascular accident) Code(s): I63.9 - Cerebral infarction, unspecified Status: Acute Current Visit: Yes - Review/Management Plan: As she had the stroke on ASA and Plavix will change to Aggrenox bid MRI showed acute infarct ECHO pending MRA unremarkable continue telemetry, would likely benefit from LOOP placement as outpatient if telemetry is negative permissive htn LDL 85 hgbA1C pending Addendum note pt seen examined and d/w PA w/u ongoing change to Aggrenox bid as failed asa and plavix echo Pending watch telemetry for a fib. will need holter vs event monitor vs loop pt-ot-st,rehab consult. permissible htn today. (1) CVA (cerebral vascular accident) Qualifiers: CVA mechanism: unspecified Qualified Code(s): I63.9 - Cerebral infarction, unspecified
--- NOTE | 2018-07-23 11:31 | P.PN ---
Subjective Interval history: Follow up on patient with CVA. Patient seen and examined. Patient complaining of weakness in the left leg otherwise denies any acute medical complaints. She denies any headache, dizziness, visual disturbances, numbness or tingling. She denies any chest pain or shortness of breath. Physical Exam Vital signs: Vital Signs 07/22/18 15:31 07/22/18 15:35 07/22/18 16:15 Temperature 98.4 F Pulse Rate 64 66 Respiratory Rate 19 15 Blood Pressure 181/82 H 160/71 H Pulse Oximetry 96 99 99 07/22/18 17:15 07/22/18 19:16 07/22/18 19:30 Temperature Pulse Rate 60 60 Respiratory Rate 24 22 Blood Pressure 174/74 H 183/79 H Pulse Oximetry 99 100 100 07/23/18 00:00 07/23/18 04:15 07/23/18 07:50 Temperature 98.0 F 98.3 F Pulse Rate 56 L 58 L Respiratory Rate 20 16 Blood Pressure 228/95 H 165/74 H Pulse Oximetry 96 99 98 07/23/18 08:00 Temperature 98.4 F Pulse Rate 56 L Respiratory Rate 16 Blood Pressure 128/68 Pulse Oximetry 94 L Intake & Output 07/22/18 07/23/18 07/23/18 18:59 06:59 18:59 Intake Total 1100 / 1100 1000 / 1000 Balance 1100 / 1100 1000 / 1000 Weight 81.193 kg 81.18 kg Intake: IV 1100 / 1100 1000 / 1000 NS Inj 1,000 ML @ 100 mls/hr IV 1000 / 1000 .CONT .Q10H [facility] Rx#:[id number] KCl 20 mEq Premix Inj 20 meq In 100 / 100 100 ml @ 50 mls/hr IV.SIG Q2H [facility] Rx#:[id number] NS Inj 1,000 ML @ Wide Open IV. 1000 / 1000 SIG BOLUS ONE Rx#:[id number] Other: # Voids 1 Date of Last Bowel Movement 07/22/18 07/22/18 Weight On Admission 81 kg Narrative: GENERAL: WDWN [facility] patient, INAD. Awake and alert. Confused. Partially oriented. Sitting up in bed. SKIN: Warm and dry. HEAD: Atraumatic. Normocephalic. EYES: Pupils equal and round. No scleral icterus. No injection or drainage. ENT: No nasal bleeding or discharge. Mucous membranes pink and moist. NECK: Trachea midline. CARDIOVASCULAR: Regular rate and rhythm. RESPIRATORY: No accessory muscle use. Clear to auscultation. Breath sounds equal bilaterally. GASTROINTESTINAL: Abdomen soft, non-tender, nondistended. +BS. MUSCULOSKELETAL: Extremities without clubbing, cyanosis, or edema. No obvious deformities. NEUROLOGICAL: Awake and alert. Oriented to self. No obvious cranial nerve deficits. Motor grossly within normal limits on the left. Able to move all extremities spontaneously. Decreased motor function RUE and RLE 2+/5. Slow speech. PSYCHIATRIC: Appropriate mood and affect; insight and judgment poor. Results - Labs CBC & Chem 7: 07/23/18 05:42 07/23/18 05:42 Laboratory Results - last 24 hr 07/22/18 07/22/18 07/22/18 16:10 16:10 16:10 WBC 6.0 RBC 4.95 Hgb 13.9 Hct 41.0 MCV 83.0 MCH 28.1 MCHC 33.8 RDW 14.2 Plt Count 186 MPV 9.8 Neut % (Auto) 68.4 Lymph % (Auto) 18.3 [place] % (Auto) 9.7 H Eos % (Auto) 2.4 Baso % (Auto) 1.2 Neut # (Auto) 4.1 Lymph # (Auto) 1.1 [place] # (Auto) 0.6 Eos # (Auto) 0.1 Baso # (Auto) 0.1 WBC Differential . Differential Comment Auto diff final PT 11.3 INR 1.1 APTT 25.2 Sodium 145 Potassium 3.1 L Chloride 104 Carbon Dioxide 32.7 H Anion Gap 8 BUN 30 H Creatinine 1.06 H Estimated GFR 52 L POC Glucose Random Glucose 130 H Calcium 9.3 Magnesium 2.1 Total Bilirubin 0.5 AST 13 L ALT 17 Alkaline Phosphatase 64 Total Creatine Kinase 44 Troponin I Less than 0.02 L Total Protein 6.8 Albumin 3.8 Triglycerides Cholesterol LDL Cholesterol, Calc HDL Cholesterol Cholesterol/HDL Ratio Urine Color Urine Clarity Urine pH Ur Specific [place] Urine Protein Urine Glucose (UA) Urine Ketones Urine Occult Blood Urine Nitrate Urine Bilirubin Urine Urobilinogen Ur Leukocyte Esterase Urine RBC Urine WBC Hyaline Casts Urine Mucus Micro UA Comment Ur Microscopic Review Urine Culture Comments 07/22/18 07/23/18 07/23/18 19:26 01:33 05:42 WBC 5.1 RBC 4.81 Hgb 13.4 Hct 39.6 MCV 82.4 MCH 27.8 MCHC 33.8 RDW 14.6 Plt Count 166 MPV 10.2 Neut % (Auto) 63.8 Lymph % (Auto) 21.5 [place] % (Auto) 10.5 H Eos % (Auto) 3.1 Baso % (Auto) 1.1 Neut # (Auto) 3.2 Lymph # (Auto) 1.1 [place] # (Auto) 0.5 Eos # (Auto) 0.2 Baso # (Auto) 0.1 WBC Differential . Differential Comment Auto diff final PT INR APTT Sodium Potassium Chloride Carbon Dioxide Anion Gap BUN Creatinine Estimated GFR POC Glucose 94 Random Glucose Calcium Magnesium Total Bilirubin AST ALT Alkaline Phosphatase Total Creatine Kinase Troponin I Total Protein Albumin Triglycerides Cholesterol LDL Cholesterol, Calc HDL Cholesterol Cholesterol/HDL Ratio Urine Color Yellow Urine Clarity Clear Urine pH 5.0 Ur Specific [place] 1.018 Urine Protein Negative Urine Glucose (UA) Negative Urine Ketones Trace H Urine Occult Blood Small H Urine Nitrate Negative Urine Bilirubin Negative Urine Urobilinogen 2.0 H Ur Leukocyte Esterase Negative Urine RBC 2 Urine WBC 1 Hyaline Casts 3 Urine Mucus Few H Micro UA Comment Culture not ind Ur Microscopic Review Not Reportable Urine Culture Comments Culture not ind 07/23/18 07/23/18 05:42 06:58 WBC RBC Hgb Hct MCV MCH MCHC RDW Plt Count MPV Neut % (Auto) Lymph % (Auto) [place] % (Auto) Eos % (Auto) Baso % (Auto) Neut # (Auto) Lymph # (Auto) [place] # (Auto) Eos # (Auto) Baso # (Auto) WBC Differential Differential Comment PT INR APTT Sodium 146 H Potassium 3.2 L Chloride 107 Carbon Dioxide 29.9 Anion Gap 9 BUN 20 H Creatinine 0.58 Estimated GFR Greater than 89 POC Glucose 82 Random Glucose 79 Calcium 8.3 L D Magnesium Total Bilirubin AST ALT Alkaline Phosphatase Total Creatine Kinase Troponin I Total Protein Albumin Triglycerides 60 Cholesterol 162 LDL Cholesterol, Calc 85 HDL Cholesterol 64.6 H Cholesterol/HDL Ratio 2.50 Urine Color Urine Clarity Urine pH Ur Specific [place] Urine Protein Urine Glucose (UA) Urine Ketones Urine Occult Blood Urine Nitrate Urine Bilirubin Urine Urobilinogen Ur Leukocyte Esterase Urine RBC Urine WBC Hyaline Casts Urine Mucus Micro UA Comment Ur Microscopic Review Urine Culture Comments - Imaging Impressions Carotid Doppler Study 07/22/18 00:00 CONCLUSION: 1. Right Internal Carotid Artery: Mild plaque formation predominantly around the right carotid bifurcation with a mild carotid stenosis. 2. Left Internal Carotid Artery: Mild plaque formation without hemodynamically significant stenosis. Head CT 07/22/18 16:02 CONCLUSION: 1. Atrophy and white matter disease with a hypodense left basal ganglia lesion possibly an evolving infarct. MRI of the brain would be helpful for further evaluation. 2. No evidence of intracranial hemorrhage. . Head MRI 07/22/18 19:38 CONCLUSION: 1. 2.3 cm subacute infarct in the left basal ganglia. Mild to moderate chronic white matter ischemic changes. Head MRA 07/22/18 19:38 CONCLUSION: 1. No hemodynamically significant stenosis. No evidence for aneurysm. Assessment and Plan - Plan 67-year-old female with a past medical history of previous CVA, hypertension and hyperlipidemia presents the emergency department for evaluation of 3 days of right-sided weakness and difficulty identifying objects. CVA Head CT significant for a hypodense left basal ganglia lesion that is possibly an involving infarct MRI shows 2.3cm subacute infarct in left basal ganglia MRA shows no significant stenosis Carotid ultrasound mild plaque with mild carotid stenosis on right LDL 85 Echo pending Neurology following, appreciate assistance. Changed from ASA/Plavix to Aggrenox BID. Continuous cardiac monitoring PT/OT/ST Rehab medicine consulted Hypertension Permissive HTN today Hypokalemia Potassium 3.2 Replete with po potassium Monitor BMP, repeat in am DVT prophylaxis SCDs Code Status: FULL Discussed Condition With: patient, nursing staff, Dr. Andino Discharge Planning: Not ready for discharge
--- NOTE | 2018-07-23 14:36 | ECHRPT ---
Indication: CVA/TIA CONCLUSIONS The left ventricular systolic function is hyperdynamic with an estimated ejection fraction in the ra nge of 65- 70%. Wall thickness is measured at the upper limits of normal. Normal left ventricular size. There is mild tricuspid valve regurgitation. The estimated pulmonary arterial pressure is 31.9 mmHg. BP: / HR: 54 Rhythm: Sinus MEASUREMENTS (Male / Female) Normal Values Technical Quality:Good 2D ECHO LV Diastolic Diameter PLAX 4.3 cm 4.2 - 5.9 / 3.9 - 5.3 cm LV Systolic Diameter PLAX 2.8 cm IVS Diastolic Thickness 1.0 cm 0.6 - 1.0 / 0.6 - 0.9 cm LVPW Diastolic Thickness 1.1 cm 0.6 - 1.0 / 0.6 - 0.9 cm LV Relative Wall Thickness 0.5 RV Internal Dim ED PLAX 2.7 cm LVOT Diameter 1.7 cm LV Ejection Fraction MOD 4C 64.8 % LV Cardiac Index MOD 4C 1278.8 cm/minm LV Ejection Fraction 4C AL 65.6 % LV Cardiac Index 4C AL 1331.8 cm/minm M-MODE Aortic Root Diameter MM 2.4 cm LA Systolic Diameter MM 3.1 cm LA Ao Ratio MM 1.3 AV Cusp Separation MM 1.8 cm DOPPLER AV Peak Velocity 146.0 cm/s AV Peak Gradient 8.5 mmHg LVOT Peak Velocity 138.0 cm/s LVOT Peak Gradient 7.6 mmHg AV Area Cont Eq pk 2.1 cm Mitral E Point Velocity 66.6 cm/s Mitral A Point Velocity 81.4 cm/s Mitral E to A Ratio 0.8 LV E' Lateral Velocity 6.3 cm/s Mitral E to LV E' Lateral Ratio 10.5 LV E' Septal Velocity 5.7 cm/s Mitral E to LV E' Septal Ratio 11.7 TR Peak Velocity 234.0 cm/s TR Peak Gradient 21.9 mmHg Right Atrial Pressure 10.0 mmHg Pulmonary Artery Systolic Pressu 31.9 mmHg Right Ventricular Systolic Press 31.9 mmHg PV Peak Velocity 117.0 cm/s PV Peak Gradient 5.5 mmHg FINDINGS LEFT VENTRICLE The left ventricular systolic function is hyperdynamic with an estimated ejection fraction in the ra nge of 65- 70%. Wall thickness is measured at the upper limits of normal. Normal left ventricular size. RIGHT VENTRICLE Normal right ventricular size and systolic function. LEFT ATRIUM The left atrial size is normal. RIGHT ATRIUM The right atrial size is normal. ATRIAL SEPTUM Normal atrial septal thickness without atrial level shunting by limited color doppler interrogation. AORTA The aortic root and proximal ascending aorta are normal in size on limited imaging. MITRAL VALVE Structurally normal mitral valve. No mitral valve stenosis or regurgitation. AORTIC VALVE Trileaflet aortic valve. No aortic valve stenosis or regurgitation. TRICUSPID VALVE Structurally normal tricuspid valve. There is mild tricuspid valve regurgitation. The estimated pulmonary arterial pressure is 31.9 mmHg. PULMONARY VALVE No pulmonary valve regurgitation or stenosis. PERICARDIUM No pericardial effusion. Juancarlos Alberot (Electronically Signed) Final Date:23 July 2018 14:34
[2018-07-23 16:13] LABS: Hemoglobin A1c 5.1 % (4.3-6.0)
--- NOTE | 2018-07-23 19:02 | ECG ---
Date Performed: 07/22/2018 Time Performed: 16:53:59 PTAGE: 67 years EKG: Sinus rhythm POSSIBLE ANTERIOR MYOCARDIAL INFARCTION PROBABLE INFERIOR MYOCARDIAL INFARCTION MODERATE T-WAVE ABNO RMALITY, CONSIDER LATERAL ISCHEMIA ABNORMAL ECG PREVIOUS TRACING : 07/22/2018 15.34 Since the previous tracing, no significant change noted DOCTOR: Ubaldo Richter Interpretating Date/Time 07/23/2018 19:00:52
--- NOTE | 2018-07-23 19:04 | ECG ---
Date Performed: 07/22/2018 Time Performed: 15:34:44 PTAGE: 67 years EKG: Sinus rhythm ANTERIOR MYOCARDIAL INFARCTION PREVIOUS TRACING : 02/14/2017 09.58 Since the previous tracing, no significant change not ed DOCTOR: Ubaldo Richter Interpretating Date/Time 07/23/2018 19:03:21
[2018-07-24] MEDS: Sod Chloride 0.9% Inj 1,000 ML IV.CONT SCH (02:50)
--- NOTE | 2018-07-24 07:51 | P.PN ---
Subjective Interval history: Follow up on patient with CVA. Patient seen and examined. Patient continues to have some residual right-sided weakness otherwise states she feels fine. She denies any headache, dizziness, numbness or tingling. She denies any chest pain or shortness of breath. Reviewed patient's medications, patient was on aspirin 325 mg at home only, she was not on Plavix. Physical Exam Vital signs: Vital Signs 07/23/18 08:00 07/23/18 12:00 07/23/18 16:00 Temperature 98.4 F 98.0 F 98.2 F Pulse Rate 54 L 56 L 57 L Respiratory Rate 16 17 17 Blood Pressure 128/68 148/67 H 160/73 H Pulse Oximetry 94 L 96 95 07/23/18 20:00 07/23/18 20:05 07/23/18 20:42 Temperature 97.4 F L Pulse Rate 66 Respiratory Rate 20 Blood Pressure 195/81 H Pulse Oximetry 96 99 95 07/24/18 00:00 07/24/18 04:00 Temperature 97.8 F 97.5 F L Pulse Rate 64 59 L Respiratory Rate 18 20 Blood Pressure 137/80 198/92 H Pulse Oximetry 97 98 Intake & Output 07/23/18 07/24/18 07/24/18 18:59 06:59 18:59 Intake Total 3440 / 3440 1000 / 1000 Balance 3440 / 3440 1000 / 1000 Weight 81 kg Intake: IV 2100 / 2100 1000 / 1000 NS Inj 1,000 ML @ 70 mls/hr IV. 1000 / 1000 1000 / 1000 CONT .[id number] [facility] Rx#:[id number] Oral 1340 / 1340 Other: # Voids 3 2 Date of Last Bowel Movement 07/22/18 07/23/18 # Bowel Movements 0 Narrative: GENERAL: WDWN patient, INAD. Awake and alert. Sitting up in bed eating breakfast. Family at the bedside. SKIN: Warm and dry. HEAD: Atraumatic. Normocephalic. EYES: Pupils equal and round. No scleral icterus. No injection or drainage. ENT: No nasal bleeding or discharge. Mucous membranes pink and moist. NECK: Trachea midline. CARDIOVASCULAR: Regular rate and rhythm. RESPIRATORY: No accessory muscle use. Clear to auscultation. Breath sounds equal bilaterally. GASTROINTESTINAL: Abdomen soft, non-tender, nondistended. +BS. MUSCULOSKELETAL: Extremities without clubbing, cyanosis, or edema. No obvious deformities. NEUROLOGICAL: Awake and alert. Oriented to self. No obvious cranial nerve deficits. Motor grossly within normal limits on the left. Able to move all extremities spontaneously. Decreased motor function RUE and RLE 2+/5. Slow speech. PSYCHIATRIC: Appropriate mood and affect; insight and judgment fair. Results - Labs CBC & Chem 7: 07/23/18 05:42 07/24/18 07:54 Laboratory Results - last 24 hr 07/23/18 07/23/18 07/23/18 05:42 11:41 17:09 POC Glucose 82 139 H Hemoglobin A1c 5.1 07/23/18 20:11 POC Glucose 120 H Hemoglobin A1c - Imaging ITS Impressions Carotid Doppler Study 07/22/18 00:00 CONCLUSION: 1. Right Internal Carotid Artery: Mild plaque formation predominantly around the right carotid bifurcation with a mild carotid stenosis. 2. Left Internal Carotid Artery: Mild plaque formation without hemodynamically significant stenosis. Head CT 07/22/18 16:02 CONCLUSION: 1. Atrophy and white matter disease with a hypodense left basal ganglia lesion possibly an evolving infarct. MRI of the brain would be helpful for further evaluation. 2. No evidence of intracranial hemorrhage. . Head MRI 07/22/18 19:38 CONCLUSION: 1. 2.3 cm subacute infarct in the left basal ganglia. Mild to moderate chronic white matter ischemic changes. Head MRA 07/22/18 19:38 CONCLUSION: 1. No hemodynamically significant stenosis. No evidence for aneurysm. Assessment and Plan - Plan 67-year-old female with a past medical history of previous CVA, hypertension and hyperlipidemia presents the emergency department for evaluation of 3 days of right-sided weakness and difficulty identifying objects. CVA Head CT significant for a hypodense left basal ganglia lesion that is possibly an involving infarct MRI shows 2.3cm subacute infarct in left basal ganglia MRA shows no significant stenosis Carotid ultrasound mild plaque with mild carotid stenosis on right LDL 85 Echo EF 65-70% Neurology following, appreciate assistance. Verified home meds - patient not on Plavix at home, 325mg ASA only. DW Dr. Youssef, will d/c Aggrenox and change to 81mg ASA with Plavix daily and follow up with neurologist. Continuous cardiac monitoring Holter monitor. Possible Loop recorder placement as outpatient Continue with PT/OT/ST Rehab medicine consulted, family and patient deciding if they want inpatient rehab continue on statin therapy Hypertension, uncontrolled D/C IVF continue Norvasc Clonidine prn with parameters monitor BP and adjust treatment accordingly Hypokalemia Potassium 3.2 resolved s/p repletion DVT prophylaxis SCDs Code Status: FULL Discussed Condition With: patient, nursing staff, Dr. Andino Discharge Planning: Not ready for discharge. Possible d/c to [facility] tomorrow am.
[2018-07-24] MEDS ORDERED: amLODIPine 5 MG Tablet PO SCH ×2 (09:00→16:00)
[2018-07-24 09:02] LABS: Anion Gap 9 meq/L (5-15); Blood Urea Nitrogen 17 mg/dL (7-18); Calcium 8.4 mg/dL (8.5-10.1); Carbon Dioxide 28.1 meq/L (21.0-32.0); Chloride 109 meq/L (98-107); Glomerular Filtration Rate Greater Than 89 mL/min (>89); Glucose,Random 88 mg/dL (74-106); Potassium 3.6 meq/L (3.5-5.1); Sodium 146 meq/L (136-145)
[2018-07-24] MEDS ORDERED: Sodium Chloride 0.45 % Inj 500 ML IV.SIG ONE (16:00)
[2018-07-25] MEDS: Sod Chloride 0.9% Inj 1,000 ML IV.CONT SCH (06:40)
--- NOTE | 2018-07-25 07:25 | P.PN ---
Subjective Interval history: Follow up on patient with CVA. Patient seen and examined. Patient reports uneventful night. She continues to have residual weakness of the right upper and lower extremity, mostly in the right hand. She denies any headache, dizziness, numbness/tingling or visual disturbances. She denies any chest pain or shortness of breath. Patient tells me today that she was on Plavix at home but that the medication bottle was empty and therefore her family did not bring the bottle and along with her other home medications. Physical Exam Vital signs: Vital Signs 07/24/18 08:00 07/24/18 10:45 07/24/18 12:00 Temperature 97.4 F L 97.8 F Pulse Rate 58 L 69 Respiratory Rate 18 18 Blood Pressure 142/81 H 199/91 H Pulse Oximetry 96 96 94 L 07/24/18 14:12 07/24/18 15:52 07/24/18 19:20 Temperature 98 F Pulse Rate 61 Respiratory Rate 18 Blood Pressure 149/69 H 108/58 L Pulse Oximetry 95 97 07/24/18 20:00 07/25/18 00:00 07/25/18 04:00 Temperature 97.9 F 97.8 F 97.3 F L Pulse Rate 61 93 H 91 H Respiratory Rate 18 18 18 Blood Pressure 144/74 H 131/80 174/82 H Pulse Oximetry 96 95 97 Intake & Output 07/24/18 07/25/18 07/25/18 18:59 06:59 18:59 Intake Total 940 / 940 500 / 500 Balance 940 / 940 500 / 500 Weight 84.8 kg Intake: IV 700 / 700 500 / 500 NS Inj 1,000 ML @ 70 mls/hr IV. 700 / 700 CONT .[id number] [facility] Rx#:[id number] Oral 240 / 240 Other: # Voids 3 Date of Last Bowel Movement 07/24/18 07/24/18 Narrative: GENERAL: WDWN patient, INAD. Awake and alert. Appears comfortable. SKIN: Warm and dry. HEAD: Atraumatic. Normocephalic. EYES: Pupils equal and round. No scleral icterus. No injection or drainage. ENT: No nasal bleeding or discharge. Mucous membranes pink and moist. NECK: Trachea midline. CARDIOVASCULAR: Regular rate and rhythm. RESPIRATORY: No accessory muscle use. Clear to auscultation. Breath sounds equal bilaterally. GASTROINTESTINAL: Abdomen soft, non-tender, nondistended. +BS. MUSCULOSKELETAL: Extremities without clubbing, cyanosis, or edema. No obvious deformities. NEUROLOGICAL: Awake and alert. Oriented to self. No obvious cranial nerve deficits. Motor grossly within normal limits on the left. Able to move all extremities spontaneously. Decreased motor function RUE 3+/5 and RLE 4/5. Slow speech. PSYCHIATRIC: Appropriate mood and affect. Results - Labs CBC & Chem 7: 07/23/18 05:42 07/24/18 07:54 Laboratory Results - last 24 hr 07/24/18 07/24/18 07/24/18 07:52 07:54 22:19 Sodium 146 H Potassium 3.6 Chloride 109 H Carbon Dioxide 28.1 Anion Gap 9 BUN 17 Creatinine 0.54 Estimated GFR Greater than 89 POC Glucose 89 90 Random Glucose 88 Calcium 8.4 L - Imaging ITS Impressions Carotid Doppler Study 07/22/18 00:00 CONCLUSION: 1. Right Internal Carotid Artery: Mild plaque formation predominantly around the right carotid bifurcation with a mild carotid stenosis. 2. Left Internal Carotid Artery: Mild plaque formation without hemodynamically significant stenosis. Head CT 07/22/18 16:02 CONCLUSION: 1. Atrophy and white matter disease with a hypodense left basal ganglia lesion possibly an evolving infarct. MRI of the brain would be helpful for further evaluation. 2. No evidence of intracranial hemorrhage. . Head MRI 07/22/18 19:38 CONCLUSION: 1. 2.3 cm subacute infarct in the left basal ganglia. Mild to moderate chronic white matter ischemic changes. Head MRA 07/22/18 19:38 CONCLUSION: 1. No hemodynamically significant stenosis. No evidence for aneurysm. Assessment and Plan - Plan 67-year-old female with a past medical history of previous CVA, hypertension and hyperlipidemia presents the emergency department for evaluation of 3 days of right-sided weakness and difficulty identifying objects. CVA Head CT significant for a hypodense left basal ganglia lesion that is possibly an involving infarct MRI shows 2.3cm subacute infarct in left basal ganglia MRA shows no significant stenosis Carotid ultrasound mild plaque with mild carotid stenosis on right LDL 85 Echo EF 65-70% Neurology following, appreciate assistance. Verified home meds - patient not on Plavix at home, 325mg ASA only. DW Dr. Youssef, will d/c Aggrenox and change to 81mg ASA with Plavix daily and follow up with neurologist. 07/25 patient tells me today that she was on Plavix at home, her bottle was empty and therefore family did not bring it in with her other medications. Will revert back to Dr. Youssef's original recommendation to discontinue aspirin and Plavix and start Aggrenox twice daily. Continuous cardiac monitoring Holter monitor. Possible Loop recorder placement as outpatient Continue with PT/OT/ST Patient accepted to [facility] for comprehensive rehabilitation, family and patient agreeable continue on statin therapy Hypertension, uncontrolled continue Norvasc 5mg daily Clonidine prn with parameters monitor BP and adjust treatment accordingly Hypokalemia Potassium 3.2 resolved s/p repletion DVT prophylaxis SCDs Code Status: FULL Discussed Condition With: patient, nursing staff, Dr. Andino
--- NOTE | 2018-07-25 07:38 | P.DS ---
Date of admission: 07/22/18 18:23 Primary care physician: Ric Mckeon MD Attending physician on discharge: Evelin Andino Anticipated date of discharge: 07/25/18 Brief History from admission: 67-year-old female with a past medical history of previous CVA, hypertension and hyperlipidemia presents the emergency department for evaluation of 3 days of right-sided weakness and difficulty identifying objects. The patient reports that her phone looks like a foreign object to her and she is unable to work it. She also reports having had right-handed weakness and driving difficulties when she drove to the pet store earlier today. She reports that she was unable to keep from swerving repeatedly while driving. She also endorses of right lower extremity weakness. Her daughter reports her speech is markedly slowed. CT of the head concerning for evolving infarct. She denies chest pain or shortness of breath. No abdominal pain. No nausea/vomiting/ diarrhea. Patient update on day of discharge: Follow up on patient with CVA. Patient seen and examined. Patient reports uneventful night. She continues to have residual weakness of the right upper and lower extremity, mostly in the right hand. She denies any headache, dizziness, numbness/tingling or visual disturbances. She denies any chest pain or shortness of breath. Patient tells me today that she was on Plavix at home but that the medication bottle was empty and therefore her family did not bring the bottle and along with her other home medications. DS: Diagnosis - Discharge Diagnosis (1) Left basal ganglia embolic stroke Status: Acute (2) CVA (cerebral vascular accident) Status: Acute (3) Hemiparesis Status: Acute (4) Hypertension Status: Acute (5) Hypokalemia Status: Acute DS: Summary Hospital Course: Patient admitted with 3 day history of right-sided weakness and difficulty identifying objects. CT of the head obtained in the ED concerning for evolving infarct. Patient was admitted and stroke protocol followed. MRI revealed 2.3 cm subacute infarct in left basal ganglia. MRA showed no significant stenosis. Carotid ultrasound showed mild plaque with mild carotid stenosis of the right. Patient's LDL was 85. Echo revealed ejection fraction of 85-70%. Patient was seen in consultation by neurology who initially started the patient on Aggrenox believing that she was taking Plavix and aspirin at home. Further history obtained from the patient revealed that she did not take Plavix at home and Aggrenox was discontinued. Per neurology recommendations, patient was placed on 81 mg of aspirin and Plavix 75 mg daily. Patient continued with her home statin therapy. She participated with PT, OT and speech therapy. Patient was cleared for discharge from neurologic standpoint. Patient was evaluated and accepted for comprehensive rehabilitation to [facility]. - Time Spent with Patient Total time spent providing and/or coordinating discharge services: Greater than 30 minutes - Quality: VTE Deep Vein Thrombosis/Pulmonary Embolism Present on Admission: No Exam Vital signs: Vital Signs 07/24/18 08:00 07/24/18 10:45 07/24/18 12:00 Temperature 97.4 F L 97.8 F Pulse Rate 58 L 69 Respiratory Rate 18 18 Blood Pressure 142/81 H 199/91 H Pulse Oximetry 96 96 94 L 07/24/18 14:12 07/24/18 15:52 07/24/18 19:20 Temperature 98 F Pulse Rate 61 Respiratory Rate 18 Blood Pressure 149/69 H 108/58 L Pulse Oximetry 95 97 07/24/18 20:00 07/25/18 00:00 07/25/18 04:00 Temperature 97.9 F 97.8 F 97.3 F L Pulse Rate 61 93 H 91 H Respiratory Rate 18 18 18 Blood Pressure 144/74 H 131/80 174/82 H Pulse Oximetry 96 95 97 Intake & Output 07/24/18 07/25/18 07/25/18 18:59 06:59 18:59 Intake Total 940 / 940 500 / 500 Balance 940 / 940 500 / 500 Weight 84.8 kg Intake: IV 700 / 700 500 / 500 NS Inj 1,000 ML @ 70 mls/hr IV. 700 / 700 CONT .[id number] [facility] Rx#:[id number] Oral 240 / 240 Other: # Voids 3 Date of Last Bowel Movement 07/24/18 07/24/18 Narrative: GENERAL: WDWN patient, INAD. Awake and alert. Appears comfortable. SKIN: Warm and dry. HEAD: Atraumatic. Normocephalic. EYES: Pupils equal and round. No scleral icterus. No injection or drainage. ENT: No nasal bleeding or discharge. Mucous membranes pink and moist. NECK: Trachea midline. CARDIOVASCULAR: Regular rate and rhythm. RESPIRATORY: No accessory muscle use. Clear to auscultation. Breath sounds equal bilaterally. GASTROINTESTINAL: Abdomen soft, non-tender, nondistended. +BS. MUSCULOSKELETAL: Extremities without clubbing, cyanosis, or edema. No obvious deformities. NEUROLOGICAL: Awake and alert. Oriented to self. No obvious cranial nerve deficits. Motor grossly within normal limits on the left. Able to move all extremities spontaneously. Decreased motor function RUE 3+/5 and RLE 4/5. Slow speech. PSYCHIATRIC: Appropriate mood and affect. Results Procedures completed during hospitalization: None Labs on day of discharge: Labs from last 24 hours 07/24/18 07/24/18 07/24/18 22:19 07:54 07:52 Sodium 146 H Potassium 3.6 Chloride 109 H Carbon Dioxide 28.1 Anion Gap 9 BUN 17 Creatinine 0.54 Estimated GFR Greater than 89 POC Glucose 90 89 Random Glucose 88 Calcium 8.4 L - Impressions ITS Impressions Carotid Doppler Study 07/22/18 00:00 CONCLUSION: 1. Right Internal Carotid Artery: Mild plaque formation predominantly around the right carotid bifurcation with a mild carotid stenosis. 2. Left Internal Carotid Artery: Mild plaque formation without hemodynamically significant stenosis. Head CT 07/22/18 16:02 CONCLUSION: 1. Atrophy and white matter disease with a hypodense left basal ganglia lesion possibly an evolving infarct. MRI of the brain would be helpful for further evaluation. 2. No evidence of intracranial hemorrhage. . Head MRI 07/22/18 19:38 CONCLUSION: 1. 2.3 cm subacute infarct in the left basal ganglia. Mild to moderate chronic white matter ischemic changes. Head MRA 07/22/18 19:38 CONCLUSION: 1. No hemodynamically significant stenosis. No evidence for aneurysm. Discharge Plan - Discharge Disposition Patient Disposition: [facility] Inpatient - Discharge Condition Condition: Stable - Discharge Order Discharge Orders: Discharge Order (Routine); Ordered 07/25/18 Ordered By: Maricruz Turner - Discharge Details Anticipated Discharge Date: 07/25/18 - Physicians Team Primary Care Provider: Ric Mckeon Attending Provider: Evelin Andino Other Providers: Shawna Youssef MD ; Malcolm Unger MD
[2018-07-25 08:57] VITALS: BP 157/75; PULSE 54; RESP 20; TEMP 97.7; O2SAT 93
[2018-07-25] MEDS ORDERED: amLODIPine 5 MG Tablet PO SCH (09:00)
--- NOTE | 2018-07-27 21:06 | HM ---
Date Performed: 07/23/2018 Time Performed: 09:51:00 HOOKUP DATE: 07/23/18 09:51:00 AM Cyn ANALYSIS START TIME: 07/23/2018 9:56:00 AM ANALYSIS END TIME: 07/24/2018 9:59:59 AM PATIENT AGE: 67 PATIENT HEIGHT PATIENT WEIGHT DRUG LIST PATIENT DIAGNOSIS: CVA TEST NARRATIVE: The patient's average heart rate was 61 BPM. Heart rates greater than 120 B PM were noted < 1% of the time. Heart rates less than 50 BPM were noted < 1% of the time. No brigid ses exceeding 2.0 seconds were noted. 4 ventricular ectopics, which represented < 1% of the total beat count, were noted. The highest ventricular ectopic frequency occurred from 02:00 PM to 03:00 P M Cyn. During this time 4 VE(s) occurred. Ventricular ectopics were observed as 4 isolated beat(s) only. No couplets or runs were noted. 90 supraventricular ectopics, which represented < 1% of th e total beat count, were noted. The highest supraventricular ectopic frequency occurred from 09:00 A M to 10:00 AM Fri. During this time 20 SVE(s) occurred. No episodes of ST depression (defined as -1.0 mm or more) were noted in channel 1. No episodes of ST depression (defined as -1.0 mm or more) were noted in channel 2. No episodes of ST depression (defined as -1.0 mm or more) were noted in ch [place] 3. no diary returned TEST INTERPRETATION: Patient undergoes a Holter monitor to see if there is any relationship of h er neurologic symptoms with an underlying rhythm disturbance. Only the expanded tracings are subject to interpretation. No Diary is provided. Patient is in Sinus rhythm throughout the monitoring sessions with occassional PAC'S and PVC's . There are several short episod es of nonsudtained supraventricular tachycardia with the longest episode lasting 10 beats. All of the se episodes of nonsustained supraventricular tachycardia associated with oragnized atrial activity an d 1:1 conduction. No atrial fibrillation and no atrial flutter is noted No significant bradyarrhythmi as were noted . The minimum heart rate is 50bpm, maximum heart rate is during the supraventricular ta chycardia at 125bpm CONCLUSIONS: 1.Holter monitor showing sinus rhythm with rare PAC'S and PVC'S 2. Occasional brief episodes of nonsustained supraventricular tachycardia, but no other significant tach yarrhythmias or bradyarrhytmias noted. 3. No complex ventricular ectopy 4. No diary provide so it is unknown to whether the patient is symptomatic. Signed by : Tiffanie Sutherland
== END 2018-07-25 10:20 ==
LOC: NEPC 15:28 → NEDA 18:23 → N05 23:48
PROVIDERS: ADMIT Family Medicine; ATTEND Family Medicine